=== PATIENT | female | born 2000 | race Caucasian/White ===

== ENCOUNTER → 2022-09-30 10:23 | Outpatient (BNVA) | payer MEDICAID, SELFPAY | PROVIDERS: Family Provider Family Medicine; PCP Family Medicine; Referring Provider Family Medicine; Visit Provider Psychiatry & Neurology Neurology | DX: M62.838 Other muscle spasm (principal); S06.0XAA Concussion with loss of consciousness status unknown, initial encounter; X58.XXXA Exposure to other specified factors, initial encounter; G44.009 Cluster headache syndrome, unspecified, not intractable | CPT/HCPCS: 36415; 72100; 80053; 82607; 82746; 83090; 83735; 83921; 84439; 84443; 84481; 85025 ==

== ENCOUNTER 2022-10-23 14:18 | Outpatient (CLI) | payer MEDICAID, SELFPAY ==
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
[2022-10-23] MEDS: gadobenate dimeglumine 20 mL vial IV (15:50)
== END 2022-10-23 14:19 | disposition home or self-care (01) ==
LOC: RAD 14:20
PROVIDERS: PCP Family Medicine; Visit Provider Psychiatry & Neurology Neurology
DX: G44.009 Cluster headache syndrome, unspecified, not intractable (principal); S06.0XAA Concussion with loss of consciousness status unknown, initial encounter; X58.XXXA Exposure to other specified factors, initial encounter; Y93.9 Activity, unspecified; Y92.9 Unspecified place or not applicable; Y99.9 Unspecified external cause status
CPT/HCPCS: 70553; A9577

== ENCOUNTER 2022-10-26 13:51 | Outpatient (CLI) | payer MEDICAID, SELFPAY ==
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
== END 2022-10-26 13:52 | disposition home or self-care (01) ==
LOC: RAD 13:51
PROVIDERS: PCP Family Medicine; Visit Provider Psychiatry & Neurology Neurology
DX: G43.909 Migraine, unspecified, not intractable, without status migrainosus (principal)
CPT/HCPCS: 93880

== ENCOUNTER → 2023-07-12 13:51 | Outpatient (BNVA) | payer MEDICAID, SELFPAY | PROVIDERS: PCP Family Medicine; Visit Provider Psychiatry & Neurology Neurology | DX: G44.329 Chronic post-traumatic headache, not intractable (principal) | CPT/HCPCS: 99212 ==

== ENCOUNTER → 2024-01-10 13:30 | Outpatient (BNVA) | payer MEDICAID, SELFPAY | PROVIDERS: PCP Family Medicine; Visit Provider Psychiatry & Neurology Neurology | DX: G44.329 Chronic post-traumatic headache, not intractable (principal); S16.1XXA Strain of muscle, fascia and tendon at neck level, initial encounter; S29.019A Strain of muscle and tendon of unspecified wall of thorax, initial encounter; X58.XXXA Exposure to other specified factors, initial encounter | CPT/HCPCS: 99212 ==